=== PATIENT | female | born 1985 | race Two or more races ===

== ENCOUNTER 2024-11-08 19:42 | Emergency (ER) | payer MEDICAID, SELFPAY ==
[2024-11-08 19:44] VITALS: BMI 26.4
[2024-11-08 19:54] VITALS: BP 120/68; PULSE 102; RESP 18; TEMP 36.9; O2SAT 97
--- NOTE | 2024-11-08 20:18 | EDNOTE_ITS ---
ED Skin Abcess FB-RME/HPI General Chief complaint: Skin/Abscess/Foreign Body Stated complaint: barthalon scyst Time Seen by Provider: 11/08/24 19:47 Source: patient Arrival date/time: 11/08/24 19:42 This is a case of 39-year-old female no with no medical history came in in the emergency room due to painful lump on the left side of her vagina for 2 days patient has history of partner swelling cyst and abscess where she was given antibiotic recurrence of the symptoms today this patient decided to sought consult here in the emergency denies any urinary symptoms denies any vaginal discharge or irritation Limitations: no limitations Related Data Previous Rx's ?Medication ?Instructions ?Recorded ofloxacin 0.3 % ear drops 5 ml LEFT EAR BID ##10 05/24 Docusate Sodium 100 mg PO BID #60 caps 03/24 PNV CMB#95/FERROUS FUMARATE/FA 1 tab PO QDAY #90 tabs 03/24/13 ( MULTIVITAMINS TABLET) ferrous sulfate 325 mg (65 mg 325 mg PO BID #60 caps 0 03/24/13 iron) tablet ibuprofen 400 mg tablet 800 mg (2 x 400 mg) PO Q8HR PRN 03/24/13 ABDOMINAL CRAMPING #30 caps ibuprofen 600 mg tablet 600 mg PO Q6H #30 tabs 08/10 cephalexin 500 mg capsule 500 mg PO QID #40 caps 11/08 hydrocodone 5 mg-acetaminophen 325 1 tab PO Q6H PRN pa in #12 tabs 11/08/24 mg tablet sulfamethoxazole 800 1 tab PO Q12H #20 tabs 11/08 mg-trimethoprim 160 mg tablet (Bactrim DS) Allergies Allergy/AdvReac Type Severity Reaction Status Date / Time No Known Allergies Allergy Mild Uncoded 03/18/17 20:29 Review of Systems Review of Systems Systems Reviewed: All systems reviewed, normal except as documented Constitutional Constitutional: Reports system reviewed and no additional complaints, except as documented and Reports as per HPI Eyes Eyes: Reports system reviewed and no additional complaints, except as documented and Reports as per HPI Cardiovascular Cardiovascular: Reports system reviewed and no additional complaints, except as documented and Reports as per HPI Respiratory Respiratory: Reports system reviewed and no additional complaints, except as documented and Reports as per HPI Gastrointestinal Gastrointestinal: Reports system reviewed and no additional complaints, except as documented and Reports as per HPI Genitourinary Genitourinary: Reports system reviewed and no additional complaints, except as documented and Reports as per HPI Musculoskeletal Musculoskeletal: Reports system reviewed and no additional complaints, except as documented and Reports as per HPI Neurologic Neurologic: Reports as per HPI Past Medical History Social History SMOKING STATUS: Never smoker ED Exam General Limitations: Present no limitations General appearance: Present alert, in no apparent distress and cachectic (Patient is awake alert oriented not in distress nontoxic looking well-hydrated well-nourished) Head Head exam: Present atraumatic, normocephalic and normal inspection Eye Eye exam: Present normal appearance, PERRL and EOMI ENT ENT exam: Present normal exam, normal oropharynx and mucous membranes moist Neck Neck exam: Present normal inspection, full ROM and trachea midline; Absent t enderness, meningismus, lymphadenopathy or thyromegaly Chest Chest inspection: Present normal inspection and symmetric chest wall rise; Absent tenderness Respiratory Respiratory exam: Present normal lung sounds bilaterally; Absent respiratory distress, wheezes, stridor, accessory muscle use or prolonged expiratory phase Cardiovascular Cardiovascular exam: Present regular rate, normal rhythm and normal heart sounds; Absent bradycardia, tachycardia, irregular rhythm, systolic murmur or diastolic murmur Abdominal Exam Abdominal exam: Present soft and normal bowel sounds; Absent distention, tenderness, guarding, rebound, rigidity, diminished bowel sounds, hyperactive bowel sounds, hypoactive bowel sounds or organomegaly External exam: Present other (Noted moderate tenderness and swelling 2 cm lump on the left labia no fluctuance not indurated no cellulitis small abscess noted on the area no discharge) Speculum exam: Absent erythema, vaginal discharge, cervical discharge, vaginal bleeding, foreign body or tissue Bimanual exam: Present normal bimanual exam Extremities Exam Extremities exam: Present normal inspection and full ROM Back Exam Back exam: Present normal inspection and full ROM Neurological Exam Neurological exam: Present alert, oriented X3, CN II-XII intact, normal gait and reflexes normal; Absent motor sensory deficit Psychiatric Psychiatric exam: Present normal affect and normal mood Skin Skin exam: Present warm, dry, intact and normal color Course Quality Measures none Orders Category Date Time Status HCG Qualitative,Urine Stat Lab 11/08/24 20:04 Ordered HYDROcodone*/APAP 5/325 [[place] 5/325] Med 11/08/24 20:04 Once 1 tab PO X1 ONE Ketorolac Inj [Toradol Inj] Med 11/08/24 20:04 Once 30 mg IM X1 ONE cefTRIAXone [Rocephin] 1,000 mg Med 11/08/24 20:04 Ordered Lidocaine 1% 20 ml [Xylocaine 1% 20 ML] 2.1 ml IM X1 Vital Signs Vital signs: Vital Signs Temperature 98.4 F 11/08/24 19:54 Pulse Rate 102 H 11/08/24 19:54 Respiratory Rate 18 11/08/24 19:54 Blood Pressure 120/68 11/08/24 19:54 Pulse Oximetry (%) 97 11/08/24 19:54 Oxygen Delivery Method Room Air 11/08/24 19:54 Patient is afebrile not tachycardic not tachypneic BP stable not hypoxic oxygen saturation is 97% in room air Skin / Abscess / Foreign Body MDM Narrative MDM Narrative:: This is a case of 39-year-old female no with no medical history came in in the emergency room due to painful lump on the left side of her vagina for 2 days patient has history of partner swelling cyst and abscess where she was given antibiotic recurrence of the symptoms today this patient decided to sought consult here in the emergency denies any urinary symptoms denies any vaginal discharge or irritation physical examination patient is awake alert oriented not in distress nontoxic looking patient abdominal exam is benign nonsurgical no guarding no rebound no rigidity no tenderness noted a 2 cm painful lump on the left side of the vagina on the labia tender to touch swelling with some redness no fluctuance none indurated but hard to touch no discharge suggestive of Bartholin cyst abscess at the time of exam there is no indication to perform incision and drainage patient was treated with antibiotic patient was given ceftriaxone IM and was discharged with Bactrim and ceftriaxone after giving Toradol and [place] patient condition improved the pain was resolved patient was well informed that she needs to see an OB team assembly line machine operator for recurrence of the Bartholin cyst abscess for any worsening symptoms return precaution in the emergency room was advised she is also advised to return in 2 days for reevaluation and possible incision and drainage Patient was discharged with comfortable condition walking with stable gait. Patient verbalized no further complains explained diagnosis and answered patient question. Patient is comfortable with the proposed management plan including the need to follow up with his/her primary care physician and any specialist if applicable Discussed patient for any urgent condition or worsening sx, He/She needed to go to emergency room immediately or call 911. Patient acknowledge the responsibility to follow up as instructed and to monitor her/his symptoms. For any persistence of the symptoms for more than 3-5 days return precaution advised. Discussed the result of the test and was given printed discharge instruction Patient data External records reviewed:: [facility] previous records Clinical information provided by:: patient Social determinants that could affect healthcare access:: none Patient has the following chronic illnesses:: None How is presenting disease/condition affected by chronic disease/condition?: no chronic disease Evaluation data The following diagnostics were reviewed and interpreted by me:: other (specify) Lab and/or radiology exams considered but not ordered:: None Interpretation Summary: None Medications / Prescriptions Medications or Prescriptions considered but not ordered:: Given Medication administrations:: Medication Administration History Hydrocodone Bitart/Acetaminophen (Hydrocodone/Apap 5/325 Tablet) 1 tab PO X1 ONE Stop: 11/08/24 20:05 Ceftriaxone Sodium 1,000 mg/ (Lidocaine HCl 2.1 ml) 0 mg IM X1 ONE Stop: 11/08/24 20:05 Ketorolac Tromethamine (Ketorolac Inj 60 Mg/2 Ml Vial) 30 mg IM X1 ONE Stop: 11/08/24 20:05 Given Consultations Consultation(s) initiated? (list below): No Diagnosis Skin/Abscess Differential Diagnosis: other (Bartholin cyst abscess) Most likely diagnosis given after review of the tests above:: Bartholin cyst abscess Admission Indicated Admission indicated?: not indicated Explain why admission is indicated or not indicated:: Not indicated Admission Request Was there a request for admission?: No Admission Attestation Admission request attestation: Not indicated Disposition Plan Disposition Plan: Discharge Discharge Attestation Discharge Attestation: The patient and all family members were given an opportunity to ask questions and understood the discharge instructions. Discharge instructions specifically effects, indications for sooner follow up or return to the emergency department, and the expected course of current diagnosis. Patient condition: Stable Discharge Plan Plan Patient Disposition: HOME (Self Care) Patient condition on transfer: Stable Prescriptions/Referrals Prescriptions/Med Rec: New cephalexin 500 mg capsule 500 mg PO QID Qty: 40 0RF hydrocodone-acetaminophen 5-325 mg tablet 1 tab PO Q6H MDD max4 taabs per day PRN (Reason: pain) Qty: 12 0RF sulfamethoxazole-trimethoprim [Bactrim DS] 800-160 mg tablet 1 tab PO Q12H Qty: 20 0RF No Action ofloxacin 5 ML drops 5 ml LEFT EAR BID Qty: 10 0RF ibuprofen 400 MG tablet 800 mg PO Q8HR PRN (Reason: ABDOMINAL CRAMPING) Qty: 30 0RF Docusate Sodium 100 MG tablet 100 mg PO BID Qty: 60 0RF PNV CMB#95/FERROUS FUMARATE/FA ( MULTIVITAMINS TABLET) 1 EACH tablet 1 tab PO QDAY Qty: 90 0RF ferrous sulfate 325 ( 65 )MG tablet 325 mg PO BID Qty: 60 0RF ibuprofen 600 mg tablet 600 mg PO Q6H Qty: 30 0RF Problem List Clinical Impression: Infected cyst of Bartholin gland duct Patient/Caregiver Discharge Instructions Education Materials: Bartholin Cyst and Abscess Additional Instructions: Follow-up with your primary care physician in 2 days for reevaluation and to be referred to OB team assembly line machine operator for further evaluation and treatment of recurrent Bartholin cyst abscess worsening symptoms or any emergent concern call 911 or go to the nearest emergency room take your medication as directed finish the course of antibiotic keep the area clean and dry warm compress return to the emergency room in 2 days for reevaluation and possible incision and drainage Print Language: Occitan Stand Alone Forms: Ilana Award Info., Patient Portal Info Letter PA/TECHNICAL SERVICES SPECIALIST Supervising Physician PA/JUAN C Supervising Physician: Dr. Mak
[2024-11-08 21:36] LABS: HCG Qualitative,Urine Negative
[2024-11-08] MEDS: HYDROcodone/APAP 5/325 TABLET 1 TAB PO (21:44)
[2024-11-08] MEDS: KETOROLAC INJ 60 MG/2 ML VIAL 30 MG IM (21:45)
[2024-11-08] MEDS: cefTRIAXone 1,000 MG, LIDOCAINE 1% 20 ML 2.1 ML IM (21:47)
== END 2024-11-08 22:19 | disposition home or self-care (01) ==
LOC: SERX 20:50
PROVIDERS: Nurse Practitioner Family; Emergency Provider Emergency Medicine
DX: N75.0 Cyst of Bartholin's gland (principal)
CPT/HCPCS: 81025; 96372; 99283; J0696; J1885; J3490; A9270

== ENCOUNTER → 2025-03-10 | Outpatient (CLI) | payer MEDICAID, SELFPAY ==
--- NOTE | 2025-03-10 09:15 | XR_ITS ---
Examination: Screening digital mammography, bilateral Computer aided detection 3-D breast Tomosynthesis, bilateral Date and time of exam: 03/10/2025, 8:56 a.m. Comparisons: 11/26/2023 Indications: Screening Technique: Nonmagnified MLO, CC views of the breasts to been obtained, reconstructed from 3-D Tomosynthesis images. R2 computer aided detection program utilized for evaluation of suspicious masses and/or abnormal calcifications. 3-D Tomosynthesis images obtained. Technologist: Findings: The breasts are heterogeneously dense, which may obscure small masses. No evidence of abnormal masses or suspicious calcifications. Impression: BI-RADS category 1: Negative findings (within normal) Recommend 1 year follow-up mammogram
== END | disposition home or self-care (01) ==
LOC: CDIM 08:46
PROVIDERS: Referring Provider Nurse Practitioner Primary Care; Visit Provider Nurse Practitioner Primary Care
DX: Z12.31 Encounter for screening mammogram for malignant neoplasm of breast (principal); R92.313 Mammographic fatty tissue density, bilateral breasts
CPT/HCPCS: 77063; 77067